=== PATIENT | male | born 1975 | race Caucasian/White ===

== ENCOUNTER 2017-12-21 13:24 | Inpatient (IN) | payer OTHER ==
[~2017-12-21] VITALS: Ht 185.4 cm; Wt 105.5 kg
[2017-12-21] VITALS (9 sets, daily range): BP systolic 109–127; BP diastolic 68–84
--- NOTE | ~2017-12-21 | O ---
[place], [place] OPERATIVE NOTE NAME: JOANNA PEREZ [facility] #: [id number] UNIT #: [id number] ROOM: 427 DOCTOR: DEWEY LOPEZ MD BIRTHDATE: [birth year] DOS: 12/21/2017 PREOPERATIVE DIAGNOSIS: Suspected incarcerated umbilical hernia with cellulitis. POSTOPERATIVE DIAGNOSIS: Umbilical cellulitis. PROCEDURE: Excision of umbilicus. SURGEON: Dewey Lopez MD [employer]: NERY. ANESTHESIA: General with endotracheal intubation. INDICATIONS: This is a 42-year-old gentleman who was admitted from the Emergency Room with a history of abdominal pain and a CAT scan that showed possibility of an incarcerated umbilical hernia with surrounding cellulitis. It was decided to take the patient to the operating room for the above-mentioned procedure and a possibility of repair of the umbilical hernia. The procedure and its complications were explained to the patient in detail preoperatively. Complications that were discussed included but were not limited to bleeding, infection, hematoma/seroma/abscess formation, prolonged postoperative pain, damage to lying vital structures, inadvertent injury to surrounding vital structures and recurrence. He agreed to proceed. DESCRIPTION OF PROCEDURE: After identifying the patient, the patient was brought to the operating suite and laid in the supine position. After induction of general anesthesia, timeout procedure was called and the parts were then painted and draped in the usual sterile fashion. An incision was made in an elliptical fashion surrounding the umbilicus. The skin and the subcutaneous tissue were incised and deepened until the fascial defect was reached. At this point, the umbilicus and the surrounding structures were excised and sent for histopathological diagnosis. Upon reaching the fascia, it was inspected and the defect was approximately 0.5 cm with no evidence of incarceration. At this point, the fascia was approximated with the help of interrupted 0 PDS in a [id number] fashion. Saline was used for irrigation. The subcutaneous tissue was approximated in 1 layer with 3-0 Vicryl in an interrupted fashion and the skin edges were then approximated with the help of 4-0 Vicryl in a subcuticular running fashion after the edges were infiltrated with 1% plain lidocaine. A dressing was placed. The patient was extubated uneventfully and brought back to the recovery room in stable fashion. There were no complications. Dr. Dewey Lopez, the attending surgeon, was present throughout the operating case. [place], [place] OPERATIVE NOTE NAME: JOANNA PEREZ UNIT #: [id number] ROOM: [id number] DOCTOR: DEWEY LOPEZ MD BIRTHDATE: [birth year] Dewey Lopez MD CM:OPRECORD:OPERATIVE NOTE 183 18 DEWEY LOPEZ MD 12/21/[id number] interface
[2017-12-21 14:12] LABS: BASO % 0.5 % (0.0-1.0); EOS # 0.2 10*3/uL (0.0-0.4); EOS % 2.8 % (1.0-4.0); HEMATOCRIT 42.5 % (42.0-52.0); HEMOGLOBIN 14.3 g/dl (14.0-18.0); LYMPH # 0.9 10*3/uL (1.3-4.4); LYMPH % 11.7 % (27.0-41.0); MEAN CELL VOLUME 87.1 fl (80.0-94.0); MEAN CORPUSCULAR HGB 29.3 pg (27.0-31.0); MEAN CORPUSCULAR HGB CONC 33.6 g/dl (33.0-37.0); MEAN PLATELET VOLUME 9.8 fl (9.6-12.3); MONO # 0.7 10*3/uL (0.1-1.0); MONO % 8.3 % (3.0-9.0); NEUT # 6.1 10*3/uL (2.3-7.9); NEUT % 76.3 % (47.0-73.0); PLATELET COUNT AUTOMATED 277 10*3/uL (130-400); RED BLOOD COUNT 4.88 10*6/uL (4.50-5.90); RED CELL DISTRI WIDTH 11.9 % (0-14.5)
[2017-12-21 14:24] LABS: ALBUMIN 3.5 gm/dl (3.1-4.5); ALKALINE PHOSPHATASE 156 U/L (45-117); BUN 10 mg/dl (7-24); CHLORIDE 101 mmol/L (98-107); LIPASE 73 U/L (73-393); POTASSIUM 3.7 mmol/L (3.5-5.1); SGOT/AST 22 IU/L (3-35); SGPT/ALT 36 U/L (12-78); SODIUM 136 mmol/L (136-145)
[2017-12-21] MEDS ORDERED: SUBOXONE 4 MG-1 EACH SL (20:33)
[2017-12-22] VITALS: BP 109/62
[2017-12-22 03:58] VITALS: BP 102/52
[2017-12-22 07:36] LABS: HEMOGLOBIN 14.3 g/dl (14.0-18.0); MEAN CORPUSCULAR HGB 28.9 pg (27.0-31.0); MEAN CORPUSCULAR HGB CONC 33.3 g/dl (33.0-37.0); MEAN PLATELET VOLUME 9.7 fl (9.6-12.3); PLATELET COUNT AUTOMATED 283 10*3/uL (130-400); RED BLOOD COUNT 4.94 10*6/uL (4.50-5.90); RED CELL DISTRI WIDTH 11.9 % (0-14.5); WHITE BLOOD COUNT 9.6 10*3/uL (4.8-10.8)
[2017-12-22 08:00] VITALS: BP 110/69
[2017-12-22 08:02] LABS: PLATELET SUFFICIENCY NORMAL (NORMAL); TOTAL CELLS COUNTED 100 #CELLS
[2017-12-22] MEDS ORDERED: DOXYCYCLINE100 M3 PO (08:11)
[2017-12-22] MEDS ORDERED: IBU800 MG PO (08:11)
[2017-12-22 08:25] LABS: BUN 10 mg/dl (7-24); CHLORIDE 103 mmol/L (98-107); CHOLESTEROL 145 mg/dL (<200); CREATININE 1.05 mg/dL (0.70-1.30); PHOSPHOROUS 2.7 mg/dL (2.5-4.9); POTASSIUM 4.6 mmol/L (3.5-5.1); SODIUM 137 mmol/L (136-145); TRIGLYCERIDES 45 mg/dl (<150); VLDL CHOLESTEROL 9 mg/dL (6-40)
[2017-12-22 08:33] LABS: VITAMIN D, 25-HYDROXY 26.3 ng/mL (30-100)
[2017-12-22 08:35] LABS: FREE T4 1.12 ng/dl (0.76-1.46); HDL CHOLESTEROL 45 mg/dl (40-60); LDL CHOLESTEROL 91 mg/dL (9-159); THYROID STIM HORMONE (HS) 0.293 uIU/ml (0.358-4.75)
[2017-12-22 12:00] VITALS: BP 110/74
== END 2017-12-22 13:50 | disposition home or self-care (01) | DRG 854 ==
LOC: ED 13:24 → EDHOLD 16:42 → 4E 16:42
PROVIDERS: Emergency Medicine; Surgery
PROC: 0JB80ZZ Excision of Abdomen Subcutaneous Tissue and Fascia, Open Approach (ICD-10-PCS; principal; 2017-12-21)
DX: A41.9 Sepsis, unspecified organism (principal); K42.0 Umbilical hernia with obstruction, without gangrene; L03.311 Cellulitis of abdominal wall; E66.09 Other obesity due to excess calories; R74.8 Abnormal levels of other serum enzymes; F17.200 Nicotine dependence, unspecified, uncomplicated; R79.82 Elevated C-reactive protein (CRP); Z83.3 Family history of diabetes mellitus; Z79.899 Other long term (current) drug therapy; Z79.1 Long term (current) use of non-steroidal anti-inflammatories (NSAID); Z79.2 Long term (current) use of antibiotics; Z68.32 Body mass index [BMI] 32.0-32.9, adult